=== PATIENT | female | born 1950 | race Caucasian/White ===

== ENCOUNTER 2017-02-12 07:40 | Day surgery (SDC) | payer MEDICARE, MEDICAID ==
[~2017-02-12] VITALS: Ht 167.6 cm; Wt 151.5 kg
[~2017-02-12 07:40] MED LIST: ALBUTEROL INH INH; ASPI-496; ASPI325T4 PO; ATEN-104; ATEN50TA41 PO; CA C1TAB62 PO; CRAN1TAB5 PO; DIPH25CA61 PO; GABA600T2 PO; HYDR12.58; HYDR12.58 PO; KETO10DR5 EACHEYE; LORA10TA9 PO; OXYC1TAB8 PO; RANI150T4 PO; [UNRECOGNIZED DRUG - OTHER] PO
[2017-02-12] MEDS ORDERED: LACTATED RINGERS 1,000 ML IV SCH (08:54)
[2017-02-12 08:57] VITALS: BP 150/81
[2017-02-12] MEDS ORDERED: PANT40TA5 PO (09:00)
[2017-02-12] MEDS ORDERED: MIDAZOLAM 1 MG/ML, 2ML ONE (09:10)
[2017-02-12] MEDS ORDERED: PROPOFOL 10 MG/ML, 20ML ONE (09:11)
== END 2017-02-12 11:15 | disposition home or self-care (01) ==
LOC: OUT 07:40
PROVIDERS: ATTEND Internal Medicine Gastroenterology
DX: K44.9 Diaphragmatic hernia without obstruction or gangrene (principal); I10 Essential (primary) hypertension; E66.01 Morbid (severe) obesity due to excess calories; Z68.43 Body mass index [BMI] 50.0-59.9, adult; Z90.49 Acquired absence of other specified parts of digestive tract; F32.9 Major depressive disorder, single episode, unspecified; J45.909 Unspecified asthma, uncomplicated; D64.9 Anemia, unspecified; Z85.828 Personal history of other malignant neoplasm of skin
CPT/HCPCS: 43235; J2250; J2704; J7120

== ENCOUNTER → 2017-11-26 | Outpatient (CLI) | payer MEDICARE, MEDICAID ==
[~2017-11-26] MED LIST changes: +ASPI325T17 PO; -ASPI325T4 PO; +LORA-856 PO; -LORA10TA9 PO; +PANT40TA5 PO
== END ==
LOC: CFH 09:05
PROVIDERS: ATTEND Family Medicine
DX: Z12.31 Encounter for screening mammogram for malignant neoplasm of breast (principal)
CPT/HCPCS: 77067

== ENCOUNTER → 2019-10-28 | Outpatient (CLI) | payer MEDICARE, MEDICAID ==
[~2019-10-28] MED LIST changes: -GABA600T2 PO; +GABA600T7 PO; -HYDR12.58; -HYDR12.58 PO; +HYDROCHLOROTH12.5 MG; +HYDROCHLOROTH12.5 MG PO
== END | disposition home or self-care (01) ==
LOC: RAD 08:44
PROVIDERS: ATTEND Surgery
DX: K57.10 Diverticulosis of small intestine without perforation or abscess without bleeding (principal); K22.8 Other specified diseases of esophagus; I10 Essential (primary) hypertension; M19.90 Unspecified osteoarthritis, unspecified site; E78.00 Pure hypercholesterolemia, unspecified; M51.34 Other intervertebral disc degeneration, thoracic region; E66.01 Morbid (severe) obesity due to excess calories; Z68.43 Body mass index [BMI] 50.0-59.9, adult; Z96.89 Presence of other specified functional implants; Z90.49 Acquired absence of other specified parts of digestive tract
CPT/HCPCS: 74247

== ENCOUNTER → 2019-12-18 | Outpatient (CLI) | payer MEDICARE, MEDICAID | END | disposition home or self-care (01) | LOC: CVU 07:33 | PROVIDERS: ATTEND Nurse Practitioner Family | DX: I65.23 Occlusion and stenosis of bilateral carotid arteries (principal); I34.0 Nonrheumatic mitral (valve) insufficiency; E78.5 Hyperlipidemia, unspecified; E66.01 Morbid (severe) obesity due to excess calories; I10 Essential (primary) hypertension; F32.9 Major depressive disorder, single episode, unspecified; Z68.43 Body mass index [BMI] 50.0-59.9, adult; Z90.49 Acquired absence of other specified parts of digestive tract | CPT/HCPCS: 76706; 93306; 93880 ==